=== PATIENT | male | born 2000 | race Caucasian/White ===

== ENCOUNTER 2020-12-27 12:29 | Emergency (ER) | payer MEDICAID ==
[~2020-12-27] VITALS: Ht 170.2 cm; Wt 72.7 kg
[2020-12-27] MEDS ORDERED: PERTUSS(ACELL),DIPH,TET VAC/PF 0.5 ML SYRINGE IM. ONE (13:45)
[2020-12-27] MEDS ORDERED: LIDOCAINE 1% 10 ML VIAL SQ ONE (13:45)
[2020-12-27 14:41] VITALS: BP 142/79
== END 2020-12-27 14:54 | disposition home or self-care (01) ==
LOC: EMS 12:31
DX: S61.210A Laceration without foreign body of right index finger without damage to nail, initial encounter (principal); F12.90 Cannabis use, unspecified, uncomplicated; W20.8XXA Other cause of strike by thrown, projected or falling object, initial encounter; Y93.89 Activity, other specified; Y92.89 Other specified places as the place of occurrence of the external cause; Y99.8 Other external cause status
CPT/HCPCS: 12001; 90471; 90715; 99283; J3490